=== PATIENT | female | born 1945 | race Caucasian/White ===

== ENCOUNTER 2021-04-10 09:53 | Emergency (ER) | payer OTHER ==
[~2021-04-10] VITALS: Ht 162.6 cm; Wt 87.5 kg
--- NOTE | 2021-04-10 10:03 | NUR ---
To ER bed 9, [id number], from school, c/o R ankle pain s/p mechanical and fall w/deformity, aaox4, breathing even and non labored, changed to a gown, attached to monitor
[2021-04-10] MEDS ORDERED: FENTANYL PF 100MCG/2ML AMPUL ONE (10:13)
[2021-04-10] MEDS ORDERED: PROPOFOL 200 MG/20 ML VIAL IV ONE (10:30)
[2021-04-10] MEDS ORDERED: FENTANYL PF 100MCG/2ML AMPUL IV ONE ×2 (10:30)
[2021-04-10] MEDS ORDERED: PROPOFOL 20 ML IV ONE (10:39)
--- NOTE | 2021-04-10 10:42 | NUR ---
CALLED [facility] [phone] WILL CALL US BACK.
--- NOTE | 2021-04-10 10:54 | NUR ---
DR. CHA FROM [facility] SPEAKING WITH DR. ISAACS.
--- NOTE | 2021-04-10 11:05 | NUR ---
RIGHT FOOT REDUCTION UNDER MODERATE SEDATION - 1105 PROPOFOL GIVEN 45MG PATIENT STILL AWAKE - 1106 ANOTHER PROPOFOL GIVEN 45MG PATIENT STILL AWAKE - 1107 PROPOFOL 25 MG GIVEN, REDUCTION STARTED
--- NOTE | 2021-04-10 11:16 | NUR ---
COATER SMOKING PIPE AT BEDSIDE
--- NOTE | 2021-04-10 11:20 | NUR ---
RT: PATIENT CAME IN BROKEN LEG AND CONSTANT SEDATION PERFORM BY DR. ISAACS. PATIENT IS PLACED ON O2 DURING PROCEDURE WITHOUT ISSUE AND SPO2 BTW 96-99 %. PATIENT WERE AWAKE AFTER PROCEDURE AND ALERT. PATIENT IN A STABLE STATE.
--- NOTE | 2021-04-10 11:21 | NUR ---
[facility] CALLED FROM [facility] PT ACCEPTED TO [facility] [place] [facility] UND[facility] [address]. PLEASE CALL [phone] FOR REPORT. TRANSPORT WILL BE PRN ETA IS [phone]
[2021-04-10 11:22] VITALS: BP 146/71
--- NOTE | 2021-04-10 12:03 | NUR ---
REPORT GIVEN TO BREN CHARGE NURSE FOR [facility]
== END 2021-04-10 12:22 | disposition short-term general hospital (02) ==
LOC: ER 10:03
DX: S82.851A Displaced trimalleolar fracture of right lower leg, initial encounter for closed fracture (principal); I10 Essential (primary) hypertension; E78.5 Hyperlipidemia, unspecified; F32.9 Major depressive disorder, single episode, unspecified; F41.9 Anxiety disorder, unspecified; W18.39XA Other fall on same level, initial encounter; Y93.89 Activity, other specified; Y92.89 Other specified places as the place of occurrence of the external cause; Y99.8 Other external cause status
CPT/HCPCS: 27818; 73600; 73610; 96374; 99152; 99285; J2704; J3010; J7030; G0500